=== PATIENT | male | born 1965 ===

== ENCOUNTER 2017-09-14 10:38 | Observation (INO) | payer MEDICAID, OTHER ==
--- NOTE | 2017-09-14 12:47 | ED PDOC ---
HPI: Male Pain Time Seen by Provider: 09/14/17 12:09 Chief Complaint (Nursing): Abdominal Pain Chief Complaint (Provider): Left Flank Pain History Per: Patient, [employer] ([id number]) History/Exam Limitations: language barrier Onset/Duration Of Symptoms: Days, Intermittent Episodes, Persistent Current Symptoms Are (Timing): Still Present Severity: Mild Quality Of Discomfort: Dull, Pressure Associated Symptoms: Back Pain. denies: Fever, Nausea, Vomiting Past Medical History Reviewed: Historical Data, Nursing Documentation, Vital Signs Vital Signs: Last Vital Signs Temp 97.6 F 09/14/17 10:44 Pulse 63 09/14/17 10:44 Resp 18 09/14/17 10:44 BP 120/84 09/14/17 10:44 Pulse Ox 98 09/14/17 10:44 - Medical History PMH: Kidney Stones, Chronic Kidney Disease - Family History Family History: States: Unknown Family Hx - Home Medications Home Medications: Ambulatory Orders Medication Instructions Recorded Allopurinol [Zyloprim] 300 mg PO HS 09/14/17 - Allergies Allergies/Adverse Reactions: Allergies Allergy/AdvReac Type Severity Reaction Status Date / Time No Known Allergies Allergy Verified 09/14/17 11:05 Physical Exam - Reviewed Nursing Documentation Reviewed: Yes Vital Signs Reviewed: Yes - Physical Exam Appears: Positive for: Well Head Exam: Positive for: ATRAUMATIC, NORMAL INSPECTION, NORMOCEPHALIC Skin: Positive for: Normal Color, Warm Eye Exam: Positive for: Normal appearance. Negative for: Periorbital swelling, Periorbital tenderness, Conjunctival injection Neck: Positive for: Normal, Painless ROM, Supple. Negative for: Decreased ROM Cardiovascular/Chest: Positive for: Regular Rate, Rhythm, Chest Non Tender. Negative for: Edema, Gallop, Bradycardia, Tachycardia Respiratory: Negative for: Decreased Breath Sounds, Accessory Muscle Use, Crackles, Rales, Rhonchi, Wheezing, Respiratory Distress Pulses-Carotid (L): 2+ Pulses-Carotid (R): 2+ Pulses-Radial (L): 2+ Pulses-Radial (R): 2+ Gastrointestinal/Abdominal: Positive for: Normal Exam, Bowel Sounds, Soft. Negative for: Tenderness Back: Positive for: L CVA Tenderness. Negative for: R CVA Tenderness, Vertebral Tenderness, Decreased ROM - Laboratory Results Result Diagrams: 09/14/17 13:00 09/14/17 13:00 - ECG ECG: Positive for: Interpreted By Me, Viewed By Me ECG Rhythm: Positive for: Normal QRS, Normal ST Segment, Sinus Bradycardia O2 Sat by Pulse Oximetry: 98 Medical Decision Making Medical Decision Making: R/O Renal stones in this patient with left sided flank pain Stone measuring 13.5mm x 4mm in the renal pelvis found; discussion with Dr Krause : pt needs a stent and ultimately lithotripsy. pt may be admitted to have a stent placed in am discussion with Dr Darnell: admit to obs-ms NPO post midnight pre-op work up ED decided to place pt on Cipro IV Q8hrs Disposition - Clinical Impression Clinical Impression: Renal stone - Patient ED Disposition Is Patient to be Admitted: Yes Discussed With : Albert Krause Jr. (see MDM) Doctor Will See Patient In The: Hospital Counseled Patient/Family Regarding: Studies Performed, Diagnosis, Need For Followup - Disposition Disposition Time: 16:23 Condition: FAIR - Pt Status Changed To: Hospital Disposition Of: Observation
[2017-09-14] MEDS ORDERED: Morphine 4 MG/ML VIAL IVP ONE (12:48)
[2017-09-14] MEDS: Sodium Chloride 0.9% 1,000 ML IV SCH (13:10)
[2017-09-14 13:27] LABS: BASO % 0.4 % (0.0-2.0); EOS % 0.6 % (0.0-4.0); HEMOGLOBIN 14.7 g/dL (12.0-18.0); LYMPH % 33.6 % (20.0-40.0); MEAN CELL VOLUME 92.5 fl (80.0-94.0); MEAN CORPUSCULAR HEMOGLOBIN 30.4 pg (27.0-31.0); MEAN CORPUSCULAR HGB CONC 32.9 g/dL (33.0-37.0); MEAN PLATELET VOLUME 7.4 fl (7.2-11.7); MONO # 0.5 K/uL (0.0-0.8); MONO % 8.9 % (0.0-10.0); NEUT # 3.4 K/uL (1.8-7.0); NEUT % 56.5 % (50.0-75.0); NRBC % 0.4 % (0.0-0.0); RBC 4.83 Mil/uL (4.40-5.90)
[2017-09-14 13:35] LABS: ALB/GLOB RATIO 1.1 (1.0-2.1); ALBUMIN 4.1 g/dL (3.5-5.0); ALT/SGPT 67 U/L (21-72); AST/SGOT 46 U/L (17-59); BLOOD UREA NITROGEN 14 mg/dl (9-20); CALCIUM 9.4 mg/dL (8.4-10.2); GFR AFRICAN-AMERICAN > 60; GFR NON-AFRICAN AMERICAN > 60; LIPASE 95 U/L (23-300)
[2017-09-14 14:07] LABS: SQUAMOUS EPITHIAL < 1 /hpf (0-5); URINE BACTERIA RARE (<OCC); URINE BILIRUBIN NEGATIVE (NEGATIVE); URINE BLOOD NEGATIVE (NEGATIVE); URINE CLARITY CLEAR (Clear); URINE COLOR COLORLESS (YELLOW); URINE GLUCOSE (UA) NEG (Normal); URINE LEUKOCYTE ESTERASE NEG Leu/uL (Negative); URINE PROTEIN NEGATIVE (NEGATIVE); URINE UROBILINOGEN 0.2-1.0 mg/dL (0.2-1.0)
--- NOTE | 2017-09-14 14:53 | CT ---
PROCEDURE: CT Abdomen and Pelvis without intravenous contrast HISTORY: r/o stones COMPARISON: None. TECHNIQUE: Helical CT of the abdomen and pelvis was performed without oral or intravenous contrast as per referring physician request. Contrast Dose: None Radiation dose: Total exam DLP = 720.79 mGy-cm. This CT exam was performed using one or more of the following dose reduction techniques: Automated exposure control, adjustment of the mA and/or kV according to patient size, and/or use of iterative reconstruction technique. FINDINGS: LOWER THORAX: Unremarkable. LIVER: Diminished attenuation is suggested diffusely, suggesting hepatic steatosis. . GALLBLADDER AND BILE DUCTS: Unremarkable. PANCREAS: Unremarkable. No gross lesion or ductal dilatation. SPLEEN: Unremarkable. ADRENALS: Unremarkable. No mass. KIDNEYS AND URETERS: A 13.5 x 4.0 mm calculus identified at the left renal pelvis with pelvis appearing mildly prominent/extrarenal without definite obstructive uropathy resulting. No additional radiodense urolithiasis bilaterally. No perinephric reaction either. . VASCULATURE: Unremarkable. No aortic aneurysm. BOWEL: Infrequent scattered colonic diverticular are appreciated without overt diverticulitis pattern. Limited retained fecal material scattered throughout the right greater than left marbella colon segments. The pericolic reaction to suggest segmental colitis. APPENDIX: Unremarkable. Normal appendix. PERITONEUM: Unremarkable. No free fluid. No free air. LYMPH NODES: Unremarkable. No enlarged lymph nodes. BLADDER: Unremarkable. REPRODUCTIVE: Enlarged prostate gland. BONES: No acute fracture. OTHER FINDINGS: None. IMPRESSION: 1. 13.5 mm ovoid calculus is identified within a slightly somewhat dilated left extrarenal pelvis without obstructive uropathy appreciated. No additional radiodense urolithiasis bilaterally. Unremarkable right kidney. 2. Hepatic steatosis. 3. Limited colonic diverticulosis scattered as discussed above without obvious segmental colitis pattern related. 4. Enlarged prostate gland.
[2017-09-14] MEDS ORDERED: Ciprofloxacin 400mg/200ml D5W 400 MG/200 ML BAG IVPB ONE (16:19)
[2017-09-14] MEDS ORDERED: Morphine 4 MG/ML VIAL IVP PRN (16:21)
--- NOTE | 2017-09-14 16:38 | CP.PCM.HP ---
History of Present Illness - History of Present Illness History of Present Illness: CC: Left sided flank pain This is a 52 year old male with a past medical history of recurrent nephrolithiasis, s/p lithotripsies x 4 in the past, presenting to the ED with 2 days of progressively worsening left flank pain radiating to the groin accompanied with nausea and vomiting. The patient states that nothing has made his pain better so far other than morphine. In the ED, a CT scan was performed revealing a large left sided 13.5 mm x 4.0 mm calculus at the left renal pelvis without definite obstructive uropathy. Dr. Krause, urologist, was consulted by the ED and the patient is to go for stent placement and possible lithotripsy in the morning. Patient denies chest pain, shortness of breath, fevers, chills, diarrhea, headache. All of the patient's and family's questions were answered at the bedside. Present on Admission - Present on Admission Any Indicators Present on Admission: No History of DVT/PE: No History of Uncontrolled Diabetes: No Review of Systems - Review of Systems Review of Systems: A 12 point review of systems was conducted and found to be negative other than what was mentioned in the HPI. Past Patient History - Infectious Disease Hx of Infectious Diseases: None - Past Medical History & Family History Past Medical History?: Yes Past Family History: Reviewed and not pertinent - Past Social History Smoking Status: Never Smoked Alcohol: None Drugs: Denies - RENAL Hx Kidney Stones: Yes - PSYCHIATRIC Hx Substance Use: No Meds Allergies/Adverse Reactions: Allergies Allergy/AdvReac Type Severity Reaction Status Date / Time No Known Allergies Allergy Verified 09/14/17 11:05 Physical Exam - Constitutional Additional comments: Physical exam: Constitutional- cooperative, awake, alert, appears uncomfortable Head- NCAT, PERRL Eye- PERRL, EOMI ENT- normal exam, MMM. Neck- normal inspection, supple, no JVD Respiratory- CTAB, no wheezes rales rhonchi Cardiovascular- RRR, +S1, +S2 no MRG GI/Abdominal- normal bowel sounds, soft, no mass, no hsm + Left flank tenderness Skin- warm, dry Extremities Exam- normal capillary refill, normal inspection Neurological Exam- alert, awake, oriented Psych- normal mood, normal affect Results - Vital Signs Recent Vital Signs: Last Vital Signs Temp 97.6 F 09/14/17 10:44 Pulse 63 09/14/17 10:44 Resp 18 09/14/17 10:44 BP 120/84 09/14/17 10:44 Pulse Ox 98 09/14/17 16:24 - Labs Result Diagrams: 09/14/17 13:00 09/14/17 13:00 Labs: Laboratory Results - last 24 hr 09/14/17 09/14/17 09/14/17 13:00 13:00 13:00 WBC 6.0 RBC 4.83 Hgb 14.7 Hct 44.7 MCV 92.5 MCH 30.4 MCHC 32.9 L RDW 14.0 Plt Count 314 MPV 7.4 Neut % (Auto) 56.5 Lymph % (Auto) 33.6 [place] % (Auto) 8.9 Eos % (Auto) 0.6 Baso % (Auto) 0.4 Neut # (Auto) 3.4 Lymph # (Auto) 2.0 [place] # (Auto) 0.5 Eos # (Auto) 0.0 Baso # (Auto) 0.0 Sodium 140 Potassium 4.5 Chloride 104 Carbon Dioxide 20 L Anion Gap 21 H BUN 14 Creatinine 0.9 Est GFR ( Amer) > 60 Est GFR (Non-Af Amer) > 60 Random Glucose 84 Calcium 9.4 Total Bilirubin 0.6 AST 46 ALT 67 Alkaline Phosphatase 76 Total Protein 7.8 Albumin 4.1 Globulin 3.6 Albumin/Globulin Ratio 1.1 Lipase 95 Urine Color Colorless Urine Clarity Clear Urine pH 6.0 Ur Specific [place] < 1.005 Urine Protein Negative Urine Glucose (UA) Neg Urine Ketones Negative Urine Blood Negative Urine Nitrate Negative Urine Bilirubin Negative Urine Urobilinogen 0.2-1.0 Ur Leukocyte Esterase Neg Urine Microscopic WBC < 1 Ur Squamous Epith Cells < 1 Urine Bacteria Rare Assessment & Plan - Assessment and Plan (Free Text) Plan: ASSESSMENT/PLAN 52 yo male presenting to the ED with a large left sided renal stone. 1) Left sided 13.5 x 4.0 renal stone at the renal pelvis - Place on med/surg observation - Urologist, Dr. Krause, on consult - NPO for urology procedure in AM - Patient is medically at low risk for urologic procedure and may proceed - Tylenol/Toradol/Morphine sliding scale for pain - Cipro IV for antibiotic coverage prior to surgery - recheck labs in AM 2) DVT prophylaxis - SCDs
[2017-09-14] MEDS: Ciprofloxacin 400mg/200ml D5W 400 MG/200 ML BAG IVPB SCH (16:43)
--- NOTE | 2017-09-14 16:57 | RAD ---
HISTORY: Preop. COMPARISON: No prior. TECHNIQUE: Chest PA and lateral FINDINGS: LUNGS: No active pulmonary disease. PLEURA: No significant pleural effusion identified. No pneumothorax apparent. CARDIOVASCULAR: No radiographic findings to suggest acute or significant cardiovascular disease. OSSEOUS STRUCTURES: No significant abnormalities. VISUALIZED UPPER ABDOMEN: Normal. OTHER FINDINGS: None. IMPRESSION: No active disease.
--- NOTE | 2017-09-14 21:49 | CP.PCM.PN ---
Subjective - Date & Time of Evaluation Date of Evaluation: 09/14/17 Time of Evaluation: 21:40 - Subjective Subjective: 52 year old hisp male with L renal pelvic stone w/o hydronephrosis or perinephric stranding, pt has normal wbc,creatine andua neg LE. on ua A non obstructing left renal pelvic stone. P discussed W ER DOCTOR AND PA if pain can be controlled pt may be discharged. If not pt may have ureteral stent inserted to prevent stone from obstructing. He would then need to have [place] [facility] [place]. the pt would be discharged with the stent and lithotripsy would have to be done at another facility. Will re examine pt in am and review alternatives with him and hospatilist tomorrow. Jimi Objective - Vital Signs/Intake and Output Vital Signs (last 24 hours): Temp Pulse Resp BP Pulse Ox 98.6 F 63 18 145/95 H 97 09/14/17 18:42 09/14/17 19:55 09/14/17 19:55 09/14/17 18:42 09/14/17 19:55 - Medications Medications: Current Medications Acetaminophen (Tylenol 325mg Tab) 650 mg PO Q6 PRN PRN Reason: Pain, Mild (1-3) Allopurinol (Zyloprim) 300 mg PO HS [facility]IRIDIANA Sodium Chloride (Sodium Chloride 0.9%) 1,000 mls @ 1,000 mls/hr IV .Q1H [facility] Stop: 09/15/17 12:49 Last Admin: 09/14/17 13:10 Dose: 1,000 mls/hr Ciprofloxacin (Cipro 400mg/200ml Dsw) 400 mg in 200 mls @ 200 mls/hr IVPB Q8 VIRDIIANA PRN Reason: Protocol Last Admin: 09/14/17 16:43 Dose: 200 mls/hr Ketorolac Tromethamine (Toradol) 30 mg IVP Q6 PRN PRN Reason: Pain, moderate (4-7) Morphine Sulfate (Morphine) 3 mg IVP Q4 PRN PRN Reason: Pain, severe (8-10) Ondansetron HCl (Zofran Inj) 4 mg IVP Q6 PRN PRN Reason: Nausea/Vomiting - Labs Labs: 09/14/17 13:00 09/14/17 13:00
[2017-09-14 23:35] VITALS: RESP 20; O2SAT 96
[2017-09-15] MEDS: Ciprofloxacin 400mg/200ml D5W 400 MG/200 ML BAG IVPB SCH (00:53)
[2017-09-15 06:19] LABS: HEMOGLOBIN 13.9 g/dL (12.0-18.0); MEAN CELL VOLUME 88.8 fl (80.0-94.0); MEAN CORPUSCULAR HEMOGLOBIN 30.3 pg (27.0-31.0); MEAN CORPUSCULAR HGB CONC 34.2 g/dL (33.0-37.0); RBC 4.57 Mil/uL (4.40-5.90); RED CELL DISTRIBUTION WIDTH 13.4 % (11.5-14.5); WHITE BLOOD COUNT 6.2 K/uL (4.8-10.8)
[2017-09-15 06:24] LABS: INR 1.1 (0.9-1.2); PROTHROMBIN TIME 11.7 Seconds (9.8-13.1)
[2017-09-15] MEDS ORDERED: Sodium Chloride 0.9% 1,000 ML IV SCH (06:30)
[2017-09-15 06:52] LABS: BLOOD UREA NITROGEN 13 mg/dl (9-20); CALCIUM 9.3 mg/dL (8.4-10.2); GFR AFRICAN-AMERICAN > 60; GFR NON-AFRICAN AMERICAN > 60
[2017-09-15 08:12] VITALS: BP 122/81; PULSE 55; TEMP 97.8
[2017-09-15] MEDS: Sodium Chloride 0.9% 1,000 ML IV SCH (08:54)
[2017-09-15] MEDS ORDERED: Pneumococcal 23-Valent Vaccine IM ONE (09:00)
--- NOTE | 2017-09-15 10:12 | CP.PCM.PN ---
Subjective - Date & Time of Evaluation Date of Evaluation: 09/15/17 Time of Evaluation: 10:07 - Subjective Subjective: Pt re examened,he is pain free,options discussed with pt he does not want stent at this time. Suggest Urologically ok to discharge to have elective lithotripsy as outpatient if he wishes. Jimi Objective - Vital Signs/Intake and Output Vital Signs (last 24 hours): Temp Pulse Resp BP Pulse Ox 97.8 F 55 L 20 122/81 96 09/15/17 08:12 09/15/17 08:12 09/15/17 08:12 09/15/17 08:12 09/15/17 08:12 - Medications Medications: Current Medications Acetaminophen (Tylenol 325mg Tab) 650 mg PO Q6 PRN PRN Reason: Pain, Mild (1-3) Allopurinol (Zyloprim) 300 mg PO HS [facility] Last Admin: 09/14/17 21:46 Dose: 300 mg Sodium Chloride (Sodium Chloride 0.9%) 1,000 mls @ 1,000 mls/hr IV .Q1H [facility]IR[facility]NA Stop: 09/15/17 12:49 Last Admin: 09/15/17 08:54 Dose: Not Given Ciprofloxacin (Cipro 400mg/200ml Dsw) 400 mg in 200 mls @ 200 mls/hr IVPB Q8 VIRIDIANA PRN Reason: Protocol Last Admin: 09/15/17 00:53 Dose: 200 mls/hr Sodium Chloride (Sodium Chloride 0.9%) 1,000 mls @ 100 mls/hr IV .Q10H [facility] Stop: 09/16/17 06:21 Last Admin: 09/15/17 06:35 Dose: 100 mls/hr Ketorolac Tromethamine (Toradol) 30 mg IVP Q6 PRN PRN Reason: Pain, moderate (4-7) Morphine Sulfate (Morphine) 3 mg IVP Q4 PRN PRN Reason: Pain, severe (8-10) Ondansetron HCl (Zofran Inj) 4 mg IVP Q6 PRN PRN Reason: Nausea/Vomiting Tamsulosin HCl (Flomax) 0.4 mg PO DAILY VIRIDIANA - Labs Labs: 09/15/17 06:00 09/15/17 06:00 PT 11.7 Seconds (9.8-13.1) 09/15/17 06:00 INR 1.1 (0.9-1.2) 09/15/17 06:00 APTT 33.0 Seconds (25.6-37.1) 09/15/17 06:00
--- NOTE | 2017-09-15 11:29 | CP.PCM.DIS ---
Provider - Provider Date of Admission: 09/14/17 15:57 Attending physician: Rainer Darnell DO Primary care physician: Service patient Consults: Dr. Krause, urology Time Spent in preparation of Discharge (in minutes): 25 Hospital Course - Lab Results Lab Results: Most Recent Lab Values WBC 6.2 K/uL (4.8-10.8) 09/15/17 06:00 RBC 4.57 Mil/uL (4.40-5.90) 09/15/17 06:00 Hgb 13.9 g/dL (12.0-18.0) 09/15/17 06:00 Hct 40.6 % (35.0-51.0) 09/15/17 06:00 MCV 88.8 fl (80.0-94.0) D 09/15/17 06:00 MCH 30.3 pg (27.0-31.0) 09/15/17 06:00 MCHC 34.2 g/dL (33.0-37.0) 09/15/17 06:00 RDW 13.4 % (11.5-14.5) 09/15/17 06:00 Plt Count 305 K/uL (130-400) 09/15/17 06:00 MPV 7.4 fl (7.2-11.7) 09/14/17 13:00 Neut % (Auto) 56.5 % (50.0-75.0) 09/14/17 13:00 Lymph % (Auto) 33.6 % (20.0-40.0) 09/14/17 13:00 [place] % (Auto) 8.9 % (0.0-10.0) 09/14/17 13:00 Eos % (Auto) 0.6 % (0.0-4.0) 09/14/17 13:00 Baso % (Auto) 0.4 % (0.0-2.0) 09/14/17 13:00 Neut # (Auto) 3.4 K/uL (1.8-7.0) 09/14/17 13:00 Lymph # (Auto) 2.0 K/uL (1.0-4.3) 09/14/17 13:00 [place] # (Auto) 0.5 K/uL (0.0-0.8) 09/14/17 13:00 Eos # (Auto) 0.0 K/uL (0.0-0.7) 09/14/17 13:00 Baso # (Auto) 0.0 K/uL (0.0-0.2) 09/14/17 13:00 PT 11.7 Seconds (9.8-13.1) 09/15/17 06:00 INR 1.1 (0.9-1.2) 09/15/17 06:00 APTT 33.0 Seconds (25.6-37.1) 09/15/17 06:00 Sodium 140 mmol/l (132-148) 09/15/17 06:00 Potassium 3.9 MMOL/L (3.6-5.0) 09/15/17 06:00 Chloride 103 mmol/L (98-107) 09/15/17 06:00 Carbon Dioxide 21 mmol/L (22-30) L 09/15/17 06:00 Anion Gap 20 (10-20) 09/15/17 06:00 BUN 13 mg/dl (9-20) 09/15/17 06:00 Creatinine 0.9 mg/dl (0.8-1.5) 09/15/17 06:00 Est GFR ( Amer) > 60 09/15/17 06:00 Est GFR (Non-Af Amer) > 60 09/15/17 06:00 Random Glucose 99 mg/dL (75-110) 09/15/17 06:00 Calcium 9.3 mg/dL (8.4-10.2) 09/15/17 06:00 Total Bilirubin 0.6 mg/dl (0.2-1.3) 09/14/17 13:00 AST 46 U/L (17-59) 09/14/17 13:00 ALT 67 U/L (21-72) 09/14/17 13:00 Alkaline Phosphatase 76 U/L (38-126) 09/14/17 13:00 Total Protein 7.8 G/DL (6.3-8.2) 09/14/17 13:00 Albumin 4.1 g/dL (3.5-5.0) 09/14/17 13:00 Globulin 3.6 gm/dL (2.2-3.9) 09/14/17 13:00 Albumin/Globulin Ratio 1.1 (1.0-2.1) 09/14/17 13:00 Lipase 95 U/L (23-300) 09/14/17 13:00 Urine Color Colorless (YELLOW) 09/14/17 13:00 Urine Clarity Clear (Clear) 09/14/17 13:00 Urine pH 6.0 (5.0-8.0) 09/14/17 13:00 Ur Specific [place] < 1.005 (1.003-1.030) 09/14/17 13:00 Urine Protein Negative mg/dL (NEGATIVE) 09/14/17 13:00 Urine Glucose (UA) Neg mg/dL (Normal) 09/14/17 13:00 Urine Ketones Negative mg/dL (NEGATIVE) 09/14/17 13:00 Urine Blood Negative (NEGATIVE) 09/14/17 13:00 Urine Nitrate Negative (NEGATIVE) 09/14/17 13:00 Urine Bilirubin Negative (NEGATIVE) 09/14/17 13:00 Urine Urobilinogen 0.2-1.0 mg/dL (0.2-1.0) 09/14/17 13:00 Ur Leukocyte Esterase Neg [place]/uL (Negative) 09/14/17 13:00 Urine Microscopic WBC < 1 /hpf (0-5) 09/14/17 13:00 Ur Squamous Epith Cells < 1 /hpf (0-5) 09/14/17 13:00 Urine Bacteria Rare (<OCC) 09/14/17 13:00 - Hospital Course Hospital Course: This is a 52 year old male with a past medical history of recurrent nephrolithiasis, s/p lithotripsies x 4 in the past, presenting to the ED with 2 days of progressively worsening left flank pain radiating to the groin accompanied with nausea and vomiting. The patient states that nothing has made his pain better so far other than morphine. In the ED, a CT scan was performed revealing a large left sided 13.5 mm x 4.0 mm calculus at the left renal pelvis without obstructive uropathy. The patient was admitted, given analgesia, and pain improved overnight. This morning, Dr. rKause, urologist, came to see the patient- the patient is refusing ureteral stent placement. ESWL is not available at this facility- therefore the patient is being discharged today as per Dr. Krause's instructions with Flomax and Percocet. The patient was instructed to follow up with urology as an outpatient within 1-2 weeks for further management. He is urged to return to the ED for worsening symptoms. Discharge Exam - Head Exam Head Exam: ATRAUMATIC, NORMAL INSPECTION, NORMOCEPHALIC - Additional Findings Additional findings: Physical exam: Constitutional- cooperative, awake, alert Head- NCAT, PERRL Eye- PERRL, EOMI ENT- normal exam, MMM. Neck- normal inspection, supple, no JVD Respiratory- CTAB, no wheezes rales rhonchi Cardiovascular- RRR, +S1, +S2 no MRG GI/Abdominal- normal bowel sounds, soft, no mass, no hsm Skin- warm, dry Extremities Exam- normal capillary refill, normal inspection Neurological Exam- alert, awake, oriented Psych- normal mood, normal affect Discharge Plan - Discharge Medications Prescriptions: oxyCODONE/Acetaminophen [Percocet 5/325 mg Tab] 1 ea PO Q6H #20 tab Tamsulosin [Flomax] 0.4 mg PO HS #30 cap - Follow Up Plan Condition: FAIR Disposition: HOME/ ROUTINE Instructions: Kidney Stones (DC) Referrals: Albert Krause Jr., MD [Staff Provider] -
== END 2017-09-15 10:40 | disposition home or self-care (01) ==
LOC: H.ER 10:38 → H.ERHOLD 15:57 → H.MEDSURG1 18:25
PROVIDERS: ADMIT Internal Medicine; ATTEND Internal Medicine
DX: N20.0 Calculus of kidney (principal); Z87.442 Personal history of urinary calculi; N18.9 Chronic kidney disease, unspecified; Z23 Encounter for immunization
CPT/HCPCS: 36415; 71046; 74176; 80048; 80053; 81003; 83690; 85025; 85027; 85610; 85730; 90732; 96374; 99285; G0009; G0378; J0744; J2270; J7040